=== PATIENT | male | born 1950 | race Caucasian/White ===

== ENCOUNTER 2020-04-28 10:34 | Emergency (ER) | payer BC ==
[~2020-04-28] VITALS: Ht 177.8 cm; Wt 90.7 kg
[2020-04-28 10:35] VITALS: BP_SYST 126
[2020-04-28 12:22] VITALS: BP_SYST 130
== END 2020-04-28 12:22 | disposition home or self-care (01) ==
LOC: SED 10:34
DX: S16.1XXA Strain of muscle, fascia and tendon at neck level, initial encounter (principal); V49.40XA Driver injured in collision with unspecified motor vehicles in traffic accident, initial encounter; Y93.89 Activity, other specified; Y92.89 Other specified places as the place of occurrence of the external cause; Y99.8 Other external cause status
CPT/HCPCS: 72040-TC; 99283